=== PATIENT | male | born 1930 | race Caucasian/White ===

== ENCOUNTER → 2017-06-20 | Outpatient (CLI) | payer MEDICARE, BC ==
--- NOTE | 2017-06-23 08:00 | Diagnostic Imaging Report ---
Left knee MRI without contrast. History: Knee pain. Fall. Decreased range of motion. Pain worse with walking. Comparison: None. Technique: Multiplanar multi-sequence MRI of the knee without contrast. Findings: Medial compartment: There is a complex medial meniscus tear involving the posterior horn and body segments. The medial compartmental articular cartilage surfaces are thinned with regions of fraying and fissuring. The medial collateral ligament complex is intact. There are peripheral marginal osteophytes. Lateral compartment: There is a complex lateral meniscus tear. The lateral compartmental articular cartilage surfaces are thinned with regions of fraying and fissuring. There are peripheral marginal osteophytes. The lateral collateral ligament complex is intact. Intercondylar notch: The ACL and PCL are intact. Patellofemoral compartment: The articular cartilage surfaces are thinned with regions of fraying and fissuring. Extensor mechanism: The quadriceps and patellar tendons are normal. Other findings: There is a joint effusion and synovitis. There is no acute fracture, subluxation or avascular necrosis. 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 Complex lateral meniscus tear with associated degenerative arthrosis in the lateral compartment of the knee. Articular cartilage fraying and fissuring in the patellofemoral compartment. Signed by: Dr. Julian Wharton M.D. on 06/23/2017 7:57 AM
== END ==
LOC: MRI 15:19
PROVIDERS: ATTEND Family Medicine
DX: M25.562 Pain in left knee (principal); S83.282A Other tear of lateral meniscus, current injury, left knee, initial encounter